=== PATIENT | female | born 1940 | race Caucasian/White ===

== ENCOUNTER 2016-06-09 10:47 | Emergency (ER) | payer OTHER ==
[~2016-06-09] VITALS: Ht 158.8 cm; Wt 57.6 kg
--- NOTE | 2016-06-09 12:03 | ED NECK/BACK PAIN COMPLAINT ---
History of Present Illness General Chief Complaint: General Adult Stated Complaint: PAIN IN NECK/HEAD Source: patient, family Exam Limitations: no limitations Allergies Coded Allergies: sumatriptan (From IMITREX) (Intermediate, HEADACHES 06/09/16) Reconcile Medications Alprazolam 0.5 MG TABLET 1 TAB PO BIDP PRN ANXIETY (Reported) Cyclobenzaprine HCl 10 MG TABLET 1 TAB PO TID PRN MUSCLE SPASM Escitalopram Oxalate 10 MG TABLET 1 TAB PO DAILY ANXIETY (Reported) Lansoprazole 30 MG CAPSULE.DR 1 CAP PO DAILY ACID REFLUX (Reported) Levothyroxine Sodium 50 MCG TABLET 1 TAB PO DAILY THYROID HEALTH (Reported) Lorazepam 1 MG TABLET 1 TAB PO BIDP PRN ANXIETY (Reported) Oxycodone HCl/Acetaminophen (Percocet 5-325 MG Tablet) 5 MG-325 MG TABLET 1-2 TAB PO 4 TIMES/DAY PRN PAIN Pregabalin (Lyrica) 50 MG CAPSULE 1 CAP PO BID PAIN CONTROL (Reported) Triage Note: PT STATES THAT SHE HAS CHRONIC NECK AND BACK PROBLEMS THAT SHE TAKES TYLENOL # 3 FOR AND LYRICA BUT STTAES THAT THEY ARE NOT WORKING ANYMORE. WAS AT HER PMD MONDAY AND THAT IS WHEN THE LYRICA WAS STARTED. Triage Nurses Notes Reviewed? yes HPI: 76-year-old female here with history of chronic neck and back pain with complaints of severe worsening neck pain. Bilateral posterior radiating to the head mostly on the left side but it is bilateral. No nausea no vomiting no visual changes no pain with palpation of the scalp. She has history of cervical fusion approximately 10 years ago and has been seeing a neck and back doctor who has been treating her with Lyrica and Tylenol with Codeine and also getting epidural injections in the lower back which are helping but has not had any injections in the neck thus far. The neck pain has been going on for approximately 6 weeks, she is currently in physical therapy. She saw her doctor again on Monday and started on Lyrica which has been ineffective. Over the last 2 days it is getting worse, she has severe stiffness, unable to move the head or neck without severe pain. Pain is sharp shooting aching throbbing and tightness feeling. She denies any fever or flulike illness. She has no weakness or numbness in the extremities. She had a MRI of the cervical spine 1 month ago and states that there is "arthritis around the fusion site" but nothing more severe as per her doctor (BEVERLY LEONG) Vital Signs & Intake/Output Vital Signs & Intake/Output Vital Signs Date Time Temp Pulse Resp B/P Pulse O2 O2 Flow FiO2 Ox Delivery Rate 06/09 1359 98.9 82 16 96/64 97 Room Air 06/09 1254 97 Room Air 06/09 1053 97.6 102 18 141/85 98 Past History Travel History Traveled to [place] past 21 day No Medical History Any Pertinent Medical History? see below for history Neurological: NONE EENT: NONE Cardiovascular: NONE Respiratory: NONE Gastrointestinal: NONE Hepatic: NONE Musculoskeletal: chronic back pain, disk herniation, spinal stenosis Psychiatric: anxiety Endocrine: NONE Blood Disorders: NONE Cancer(s): NONE ARCHITECT INTERN/Reproductive: NONE Surgical History Surgical History: LUMBAR FUSION Psychosocial History What is your primary language Lao Tobacco Use: Never used ETOH Use: denies use Illicit Drug Use: denies illicit drug use Family History Hx Contributory? No (BEVERLY LEONG) Review of Systems Review of Systems Constitutional: Reports: see HPI. Eyes: Reports: no symptoms. Ears, Nose, Throat, Mouth: Reports: no symptoms. Respiratory: Reports: no symptoms. Cardiovascular: Reports: no symptoms. Gastrointestinal/Abdominal: Reports: no symptoms. Musculoskeletal: Reports: see HPI. Skin: Reports: no symptoms. Neurological/Psychological: Reports: no symptoms. All Other Systems: Reviewed and Negative (BEVERLY LEONG) Physical Exam Physical Exam Neck: supple, limited range of motion, muscle spasm, paraspinous muscle tender, spinous processes tender, tenderness, tender lateral, tender midline, PATIENT UNABLE TO RANGE Comments: Well-developed well-nourished . . Appears To be in acute pain HEENT: Atraumatic, extraocular motion intact, no pain with palpation of the scalp or hair Neck: Supple, no lymphadenopathy Back: Nontender Respiratory: No respiratory distress Extremities: No edema, full range of motion Neuro: Alert and oriented x3 Psych: Mood affect normal, normal memory normal judgment. Skin: Warm and dry, no rash on exposed skin (BEVERLY LEONG) Progress Differential Diagnosis: AAA, aortic dissection, C spine injury, carotid dissection, cauda equina syn, herniated disc, myofascial strain, pyelo/UTI, sciatica, spinal cord inj, thoracic outlet syn, T/L spine injury, ureterolithiasis Plan of Care: Orders Procedure Date/time Status CT HEAD WO IV CONTRAST 06/09 1153 Active Current Medications Sig/Kp Start time Last Medication Dose Stop Time Status Admin Cyclobenzaprine HCl 10 MG ONCE ONE 06/09 1200 UNVr (Flexeril 10MG Tab) 06/09 120 Ketorolac 30 MG ONE ONE 06/09 1200 UNVr Tromethamine 06/09 1201 (Toradol) Oxycodone/ 1 TAB ONCE ONE 06/09 1200 AC Acetaminophen 06/09 120 (Percocet) Diagnostic Imaging: Viewed by Me: CT Scan. Discussed w/RAD: CT Scan. Radiology Impression: PATIENT: THOMAS VIDAL PRESENT AGE: 76 PATIENT ACCOUNT NO: [id number] : 41 LOCATION: [facility] ORDERING PHYSICIAN: BEVERLY LOPEZ SERVICE DATE: 06/09/16 EXAM TYPE : CAT - CT HEAD WO IV CONTRAST EXAMINATION: CT HEAD WITHOUT CONTRAST CLINICAL INFORMATION: Headache COMPARISON: None TECHNIQUE: Contiguous axial imaging was performed from the skull base to vertex without intravenous administration of contrast. DLP: 601 mGy-cm FINDINGS: There is no hemorrhage, edema, shift of the normally midline structures, hydrocephalus, or evolving territorial infarct. Mild prominence of the bifrontal extra-axial CSF spaces is symmetric and vessels are seen traversing these areas. Attenuation within the brain is fairly normal. Ventricles and sulci appear fairly normal in caliber and configuration. No acute osseous abnormalities. The paranasal sinuses, mastoid air cells and middle ear cavities are clear. There is mild effacement of the right fossa of Rosenmuller which can be correlated with direct inspection. The orbits are unremarkable. No acute soft tissue findings. Anterior cervical discectomy and fusion hardware is visualized on the inside sales person image from C4 through C7. IMPRESSION: No acute intracranial pathology. Mild effacement of the right fossa of Rosenmuller which can be correlated with direct inspection. DICTATED BY: NELL WOOTEN MD DATE/ TIME DICTATED:06/09/161224 MEDICAL HISTORIAN:MARY DATE/TIME TRANSCRIBED: 06/09/16 Comments: Treated with Percocet, cyclobenzaprine and 30 mg of IM Toradol. Head CT is negative. Patient reevaluated and is feeling better. She is to follow up with her spine surgeon as outpatient. Medication for pain and spasm provided (BEVERLY LEONG) Departure Departure Disposition: HOME OR SELF CARE Condition: Stable Clinical Impression Primary Impression: Cervicalgia Secondary Impressions: Neck stiffness Referrals: SUZIE DESAI,BERENICE DONAHUE MD,AARON (PCP/Family) Additional Instructions: Take medications for pain, spasm and inflammation as needed. Rest, warm compresses, gentle stretching. Follow-up with orthopedist if no better in the next 5-7 days. Watch for worsening symptoms of pain, numbness or weakness down the leg, return with any concerns. Departure Forms: Customer Survey General Discharge Information Prescriptions: Current Visit Scripts Oxycodone HCl/Acetaminophen (Percocet 5-325 MG Tablet) 1-2 TAB PO 4 TIMES/DAY PRN PAIN #20 TAB Cyclobenzaprine HCl 1 TAB PO TID PRN MUSCLE SPASM #21 TAB (BEVERLY LEONG) PA/BINDING DYER Co-Sign Statement Statement: ED Attending supervision documentation- [x] I saw and evaluated the patient. I have also reviewed all the pertinent lab results and diagnostic results. I agree with the findings and the plan of care as documented in the PA's/BINDING DYER's documentation. [] I have reviewed the ED Record and agree with the PA's/BINDING DYER's documentation. [] Additions or exceptions (if any) to the PAs/BINDING DYER's note and plan are summarized below: [] (KELSY DESAI,JOVITA Jauregui)
--- NOTE | 2016-06-09 12:33 | CT SCAN REPORT ---
EXAMINATION: CT HEAD WITHOUT CONTRAST CLINICAL INFORMATION: Headache COMPARISON: None TECHNIQUE: Contiguous axial imaging was performed from the skull base to vertex without intravenous administration of contrast. DLP: 601 mGy-cm FINDINGS: There is no hemorrhage, edema, shift of the normally midline structures, hydrocephalus, or evolving territorial infarct. Mild prominence of the bifrontal extra-axial CSF spaces is symmetric and vessels are seen traversing these areas. Attenuation within the brain is fairly normal. Ventricles and sulci appear fairly normal in caliber and configuration. No acute osseous abnormalities. The paranasal sinuses, mastoid air cells and middle ear cavities are clear. There is mild effacement of the right fossa of Rosenmuller which can be correlated with direct inspection. The orbits are unremarkable. No acute soft tissue findings. Anterior cervical discectomy and fusion hardware is visualized on the patient intake representative image from C4 through C7. IMPRESSION: No acute intracranial pathology. Mild effacement of the right fossa of Rosenmuller which can be correlated with direct inspection.
[2016-06-09] MEDS ORDERED: LEVOTHYROXINE50 MCG PO (12:59)
[2016-06-09] MEDS ORDERED: LYRICA50 M1 PO (12:59)
[2016-06-09] MEDS ORDERED: LANSOPRAZOLE30 M2 PO (13:01)
[2016-06-09] MEDS ORDERED: ESCITALOPRAM OX10 MG PO (13:01)
[2016-06-09] MEDS ORDERED: ALPRAZOLAM0.5 M4 PO (13:02)
[2016-06-09] MEDS ORDERED: LORAZEPAM1 M1 PO (13:02)
[2016-06-09] MEDS ORDERED: CYCLOBENZAPRINE10 M1 PO (13:04)
[2016-06-09] MEDS ORDERED: PERCOCET 5-3251 EACH PO (13:04)
[2016-06-09 13:59] VITALS: BP 96/64
== END 2016-06-09 14:02 ==
LOC: ERH 10:47
DX: M54.2 Cervicalgia (principal); R51 Headache
CPT/HCPCS: 96372; J1885